=== PATIENT | female | born 1975 | race Two or more races ===

== ENCOUNTER 2017-02-07 08:45 | Inpatient (IN) | payer MEDICAID ==
[~2017-02-07] VITALS: Ht 152.4 cm; Wt 86.2 kg
[2017-02-07] VITALS (9 sets, daily range): BP systolic 106–130; BP diastolic 63–72
[2017-02-07 09:59] LABS: Basophils # (auto) 0 uL; Basophils % (auto) 0.6 % (0.0-2.0); DEFINITIVE VIEW TRANSMISSION; Eosinophils # (auto) 0.1 uL; Eosinophils % (auto) 0.9 % (0.0-7.0); Hemoglobin 11.1 g/dL (12.2-16.2); Lymphocytes # (auto) 1.5 uL; Lymphocytes % (auto) 19.1 % (10.0-50.0); Mean Corpuscular Hemoglobin 24.2 pg (28.0-32.0); Mean Corpuscular Hgb Conc. 32.6 g/dL (32.0-36.0); Mean Corpuscular Volume 74.4 fL (80.0-100.0); Mean Platelet Volume 10.6 fL (7.4-10.4); Monocytes # (auto) 0.5 uL; Monocytes % (auto) 6.2 % (0.0-12.0); Neutrophils # (auto) 5.6 uL; Neutrophils % (auto) 73.2 % (37.0-80.0); Platelet Count (auto) 255 10^3/uL (140-450); Red Cell Distribution Width 17.5 % (11.6-16.0); SUSPECT VIEW TRANSMISSION; White Blood Cell 7.6 10^3/uL (4.4-10.8)
[2017-02-07 10:00] LABS: Urine Bilirubin Negative (Negative); Urine Blood Negative /uL (Negative); Urine Color Yellow (Yellow); Urine Glucose Normal (Normal); Urine Ketone Negative (Negative); Urine Mucus FEW (None Seen); Urine Nitrite Negative (Negative); Urine RBC 2 /hpf (0 - 4); Urine Squamous Epithelial Cell MOD /hpf (<5); Urine Urobilinogen Normal (Negative); Urine pH 6.5 (5.0-8.0)
[2017-02-07 10:12] LABS: INR 0.9 (0.9-1.15); Prothrombin Time 9.7 sec (9.37-12.3)
[2017-02-07 10:23] LABS: Albumin 2.4 g/dL (3.4-5.0); BUN/Creatinine Ratio 13.6; Bilirubin, Total 0.2 mg/dL (0.2-1.0); Calcium 7.8 mg/dL (8.5-10.1); Potassium 3.7 mmol/L (3.5-5.1); Total Protein 6.2 g/dL (6.4-8.2)
[2017-02-07] MEDS ORDERED: fentaNYL CITRATE 100 MCG/2 ML VL ONE (12:17)
[2017-02-07] MEDS ORDERED: CARBOPROST TROMETHAMINE 250 MCG/1ML VIAL IM ONE (13:11)
[2017-02-07] MEDS ORDERED: LACT. RINGERS/OXYTOCIN 20UNITS 1,000 ML IV ONE (13:30)
[2017-02-07] MEDS ORDERED: ONDANSETRON HCL 4 MG/2 ML VIAL IV PRN (13:30)
[2017-02-07] MEDS ORDERED: HYDROmorphone HCL 2 MG/ML VL IV PRN ×2 (13:30→14:00)
[2017-02-07] MEDS ORDERED: OXYTOCIN 10UNIT/ML 1ML VIAL ONE (13:50)
[2017-02-07] MEDS ORDERED: ONDANSETRON HCL 4 MG/2 ML VIAL IV ONE (14:00)
[2017-02-07] MEDS ORDERED: ePHEDrine SULFATE 50 MG/ML AMP IV PRN (14:00)
[2017-02-07] MEDS ORDERED: hydrALAZINE HCL 20 MG/ML VL IV PRN (14:00)
[2017-02-07] MEDS ORDERED: ceFAZolin 1GM/50ML D5W 50 ML IV SCH (14:00)
[2017-02-07 15:24] LABS: Hematocrit 34.8 % (36.0-46.0); Hemoglobin 11.3 g/dL (12.2-16.2)
[2017-02-07] MEDS: ceFAZolin 1GM/50ML D5W 50 ML IV SCH (16:27)
[2017-02-07] MEDS: KETOROLAC TROMETH 30 MG/ML 1ML VIAL IV PRN (16:27)
[2017-02-07] MEDS: MORPHINE SULF INJ 2 MG/ML SYRINGE 1ML IV PRN ×2 (19:23→23:16)
[2017-02-07] MEDS: LACTATED RINGER'S 1,000 ML IV SCH (19:30)
[2017-02-07 21:18] LABS: Basophils # (auto) 0 uL; Basophils % (auto) 0.4 % (0.0-2.0); DEFINITIVE VIEW TRANSMISSION; Eosinophils # (auto) 0 uL; Eosinophils % (auto) 0.3 % (0.0-7.0); Hematocrit 30.9 % (36.0-46.0); Lymphocytes # (auto) 1.8 uL; Lymphocytes % (auto) 15.5 % (10.0-50.0); Mean Corpuscular Hemoglobin 24.2 pg (28.0-32.0); Mean Corpuscular Hgb Conc. 32.5 g/dL (32.0-36.0); Mean Corpuscular Volume 74.7 fL (80.0-100.0); Mean Platelet Volume 10.8 fL (7.4-10.4); Monocytes # (auto) 0.7 uL; Monocytes % (auto) 5.9 % (0.0-12.0); Neutrophils # (auto) 8.8 uL; Neutrophils % (auto) 77.9 % (37.0-80.0); Platelet Count (auto) 236 10^3/uL (140-450); SUSPECT VIEW TRANSMISSION; White Blood Cell 11.4 10^3/uL (4.4-10.8)
[2017-02-08] VITALS (11 sets, daily range): BP systolic 106–117; BP diastolic 68–77
[2017-02-08] MEDS: ceFAZolin 1GM/50ML D5W 50 ML IV SCH ×2 (00:30→07:27)
[2017-02-08] MEDS: MORPHINE SULF INJ 2 MG/ML SYRINGE 1ML IV PRN ×2 (00:44→04:46)
[2017-02-08] MEDS: LACTATED RINGER'S 1,000 ML IV SCH ×3 (04:46→18:15)
[2017-02-08 06:21] LABS: Basophils # (auto) 0.1 uL; Basophils % (auto) 0.6 % (0.0-2.0); DEFINITIVE VIEW TRANSMISSION; Eosinophils # (auto) 0.1 uL; Eosinophils % (auto) 0.8 % (0.0-7.0); Hemoglobin 9.8 g/dL (12.2-16.2); Lymphocytes # (auto) 1.2 uL; Mean Corpuscular Hemoglobin 24.1 pg (28.0-32.0); Mean Corpuscular Hgb Conc. 32.6 g/dL (32.0-36.0); Mean Corpuscular Volume 73.9 fL (80.0-100.0); Mean Platelet Volume 10.5 fL (7.4-10.4); Monocytes # (auto) 0.5 uL; Monocytes % (auto) 5.4 % (0.0-12.0); Neutrophils # (auto) 7.4 uL; Neutrophils % (auto) 80.2 % (37.0-80.0); Platelet Count (auto) 216 10^3/uL (140-450); Red Cell Distribution Width 17.8 % (11.6-16.0); SUSPECT VIEW TRANSMISSION; White Blood Cell 9.2 10^3/uL (4.4-10.8)
[2017-02-08 08:06] LABS: HIV-1/O/2 Scrn w/Reflex Non Reactive (Non Reactive)
[2017-02-08] MEDS ORDERED: BISACODYL 10 MG RECT SUPP PR PRN (08:30)
[2017-02-08] MEDS: DOCUSATE SOD 100 MG CAP PO SCH ×2 (09:18→22:11)
[2017-02-08] MEDS: SIMETHICONE 80 MG CHEWABLE TABLET PO SCH ×4 (09:19→22:11)
[2017-02-08] MEDS: KETOROLAC TROMETH 30 MG/ML 1ML VIAL IV PRN (09:19)
[2017-02-08] MEDS: HYDROcodone-ACET 5/325MG TAB PO PRN ×2 (15:45→22:11)
[2017-02-09 03:25] VITALS: BP 113/66
[2017-02-09] MEDS: LACTATED RINGER'S 1,000 ML IV SCH ×2 (04:25→14:25)
[2017-02-09] MEDS: HYDROcodone-ACET 5/325MG TAB PO PRN (05:38)
[2017-02-09] MEDS: SIMETHICONE 80 MG CHEWABLE TABLET PO SCH ×4 (05:38→21:46)
[2017-02-09 07:55] VITALS: BP 101/64
[2017-02-09] MEDS: DOCUSATE SOD 100 MG CAP PO SCH ×2 (09:42→21:46)
[2017-02-09] MEDS: IBUPROFEN 800 MG TAB PO PRN ×2 (09:42→18:55)
[2017-02-09 11:46] VITALS: BP 117/77
[2017-02-09 16:00] VITALS: BP 106/68
[2017-02-09 19:00] VITALS: BP 109/74
[2017-02-09] MEDS: SODIUM CHLOR 0.9% PF (SALINE LOCK) 10ML VIAL IV SCH (21:46)
[2017-02-09 23:15] VITALS: BP 103/66
[2017-02-10] MEDS: LACTATED RINGER'S 1,000 ML IV SCH (00:25)
[2017-02-10 03:12] VITALS: BP 98/62
[2017-02-10] MEDS: SIMETHICONE 80 MG CHEWABLE TABLET PO SCH (05:47)
[2017-02-10] MEDS: SODIUM CHLOR 0.9% PF (SALINE LOCK) 10ML VIAL IV SCH (05:47)
[2017-02-10] MEDS ORDERED: PREN-96 PO (06:23)
[2017-02-10] MEDS ORDERED: MEASLES, MUMPS & RUBELLA VAC(MMRII) 0.5ML SC ONE (06:30)
[2017-02-10 07:16] VITALS: BP 104/61
[2017-02-10] MEDS ORDERED: TETANUS-DIPTH-ACEL PERTUSSIS 0.5ML SYRG IM ONE (07:45)
[2017-02-10] MEDS: HYDROcodone-ACET 5/325MG TAB PO PRN (09:11)
[2017-02-10] MEDS: DOCUSATE SOD 100 MG CAP PO SCH (10:00)
== END 2017-02-10 10:20 | disposition home or self-care (01) | DRG 540 ==
LOC: LDRP 08:45
PROVIDERS: ADMIT Specialist; ATTEND Specialist
PROC: 0UL70CZ Occlusion of Bilateral Fallopian Tubes with Extraluminal Device, Open Approach (ICD-10-PCS; 2017-02-07)
PROC: 10D00Z1 Extraction of Products of Conception, Low, Open Approach (ICD-10-PCS; principal; 2017-02-07 12:22)
DX: O34.211 Maternal care for low transverse scar from previous cesarean delivery (principal); O09.523 Supervision of elderly multigravida, third trimester; O69.81X0 Labor and delivery complicated by cord around neck, without compression, not applicable or unspecified; Z30.2 Encounter for sterilization; Z37.0 Single live birth; Z3A.39 39 weeks gestation of pregnancy
CPT/HCPCS: 36415; 51702; 59025; 80053; 81001; 85014; 85018; 85025; 85610; 85730; 86592; 86762; 86850; 86900; 86901; 87340; 90715; 94762; 96365; 96366; 96372; 96375; J0690; J1885